=== PATIENT | male | born 1990 | race Hispanic/Latino ===

== ENCOUNTER 2017-12-16 18:55 | Emergency (ER) | payer OTHER ==
[2017-12-16 20:40] LABS: INFLUENZA A AMPLIFICATION NEGATIVE (NEGATIVE); INFLUENZA B AMPLIFICATION POSITIVE (NEGATIVE)
[2017-12-16] MEDS: OSELTAMIVIR PHOSPHATE 75 MG CAP (TAMIFLU) PO (21:00)
[2017-12-16] MEDS: AMOXICILLIN 500 MG CAP PO (21:00)
== END 2017-12-16 21:26 | disposition home or self-care (01) ==
LOC: M ED 18:55
DX: J10.1 Influenza due to other identified influenza virus with other respiratory manifestations (principal); H66.92 Otitis media, unspecified, left ear; J45.909 Unspecified asthma, uncomplicated
CPT/HCPCS: 87502